=== PATIENT | female | born 1945 | race Two or more races ===

== ENCOUNTER 2019-05-02 19:13 | Emergency (ER) | payer SELFPAY ==
[2019-05-02] MEDS ORDERED: Sodium Chloride 0.9% 10 ML Syringe FLUSH PRN (19:53)
[2019-05-02] MEDS ORDERED: Sodium Chloride 0.9% 2.5 ML Syringe FLUSH PRN (19:53)
--- NOTE | 2019-05-02 19:55 | EDM.PDOC ---
ED HPI GENERAL MEDICAL PROBLEM - General Chief Complaint: Diabetic Complaint Stated Complaint: BLOOD SUGAR 300+ Time Seen by Provider: 05/02/19 19:53 Source of Information: Reports: Patient History Limitations: Reports: No Limitations - History of Present Illness INITIAL COMMENTS - FREE TEXT/NARRATIVE: HISTORY AND PHYSICAL: History of present illness: Patient is a 73-year-old female presents to the ED with complaint of elevated blood sure. Patient's daughter states she just moved here from [place] recently. Patient had been living with another family member and not taking her metformin or taking her blood sugars regularly. Patient had a blood sugar this afternoon and states it was over 300. She states she has been sick recently with a cough and generally not feeling well. Denies chest pain, shortness of breath, abdominal pain, nausea, vomiting, diarrhea. Review of systems: As per history of present illness and below otherwise all systems reviewed and negative. Past medical history: As per history of present illness and as reviewed below otherwise noncontributory. Surgical history: As per history of present illness and as reviewed below otherwise noncontributory. Social history: No reported history of drug or alcohol abuse. Family history: As per history of present illness and as reviewed below otherwise noncontributory. Physical exam: General: Patient sitting comfortably in no acute distress and nontoxic appearing HEENT: Atraumatic, normocephalic, pupils reactive, negative for conjunctival pallor or scleral icterus, mucous membranes moist, throat clear, neck supple, nontender, trachea midline. No meningeal signs. Lungs: Clear to auscultation, breath sounds equal bilaterally, chest nontender. Heart: S1S2, regular, negative for clicks, rubs, or overt murmur. Abdomen: Soft, nondistended, nontender. Negative for masses or hepatosplenomegaly. Negative for costovertebral tenderness. No rigidity, rebound , guarding. Pelvis: Stable nontender. Genitourinary: Deferred. Rectal: Deferred. Extremities: Atraumatic, negative for cords or calf pain. Neurovascular unremarkable. Neuro: Awake, alert, oriented. Cranial nerves II through XII unremarkable. Cerebellum unremarkable. Motor and sensory unremarkable throughout. Exam nonfocal. Notes: Diagnostics: CBC, CMP, UA, Chest x-ray Therapeutics: 1L NS IV Prescriptions: Impression: elevated blood sugar Definitive disposition and diagnosis as appropriate pending reevaluation and review of above. ED ROS GENERAL - Review of Systems Review Of Systems: Comprehensive ROS is negative, except as noted in HPI. ED EXAM GENERAL NO PERIP PULSE - Physical Exam Exam: See Below (see dictation) Course - Vital Signs Last Recorded V/S: Last Vital Signs Temp 97.4 F 05/02/19 19:31 Pulse 66 05/02/19 20:29 Resp 20 05/02/19 20:29 BP 128/75 05/02/19 20:29 Pulse Ox 95 05/02/19 20:29 - Orders/Labs/Meds Orders: Active Orders 24 hr Category Date Time Status Sodium Chloride 0.9% [Saline Flush] Med 05/02/19 19:53 Active 10 ml FLUSH ASDIRECTED PRN Sodium Chloride 0.9% [Saline Flush] Med 05/02/19 19:53 Active 2.5 ml FLUSH ASDIRECTED PRN Saline Lock Insert [OM.PC] Stat Oth 05/02/19 19:53 Ordered Medication Orders Sodium Chloride (Saline Flush) 10 ml FLUSH ASDIRECTED PRN PRN Reason: Keep Vein Open Last Admin: 05/02/19 20:29 Dose: 10 ml Sodium Chloride (Saline Flush) 2.5 ml FLUSH ASDIRECTED PRN PRN Reason: Keep Vein Open Last Admin: 05/02/19 20:29 Dose: 2.5 ml Labs: Laboratory Tests 05/02/19 05/02/19 05/02/19 Range/Units 19:32 19:45 19:45 WBC 9.42 (4.0-11.0) K/uL RBC 4.36 (4.30-5.90) M/uL Hgb 12.6 (12.0-16.0) g/dL Hct 37.9 (36.0-46.0) % MCV 86.9 (80.0-98.0) fL MCH 28.9 (27.0-32.0) pg MCHC 33.2 (31.0-37.0) g/dL RDW Std Deviation 43.2 (28.0-62.0) fl RDW Coeff of Talon 14 (11.0-15.0) % Plt Count 317 (150-400) K/uL MPV 10.50 (7.40-12.00) fL Neut % (Auto) 78.9 (48.0-80.0) % Lymph % (Auto) 15.0 L (16.0-40.0) % [place] % (Auto) 4.8 (0.0-15.0) % Eos % (Auto) 1.0 (0.0-7.0) % Baso % (Auto) 0.3 (0.0-1.5) % Neut # (Auto) 7.4 H (1.4-5.7) K/uL Lymph # (Auto) 1.4 (0.6-2.4) K/uL [place] # (Auto) 0.5 (0.0-0.8) K/uL Eos # (Auto) 0.1 (0.0-0.7) K/uL Baso # (Auto) 0.0 (0.0-0.1) K/uL Nucleated RBC % 0.0 /100WBC Nucleated RBCs # 0 K/uL Sodium 139 (136-145) mmol/L Potassium 3.7 (3.5-5.1) mmol/L Chloride 100 (98-107) mmol/L Carbon Dioxide 27.2 (21.0-32.0) mmol/L BUN 41 H (7.0-18.0) mg/dL Creatinine 1.4 H (0.6-1.0) mg/dL Est Cr Clr Drug Dosing TNP Estimated GFR (MDRD) 36.7 ml/min Glucose 244 H (74-106) mg/dL POC Glucose 243 H (60-110) mg/dL Calcium 9.1 (8.5-10.1) mg/dL Total Bilirubin 0.1 L (0.2-1.0) mg/dL AST 16 (15-37) IU/L ALT 24 (14-63) IU/L Alkaline Phosphatase 77 (46-116) U/L Total Protein 7.7 (6.4-8.2) g/dL Albumin 3.5 (3.4-5.0) g/dL Globulin 4.2 H (2.6-4.0) g/dL Albumin/Globulin Ratio 0.8 L (0.9-1.6) Urine Color Urine Appearance Urine pH (5.0-8.0) Ur Specific [place] (1.001-1.035) Urine Protein (NEGATIVE) mg/dL Urine Glucose (UA) (NEGATIVE) mg/dL Urine Ketones (NEGATIVE) mg/dL Urine Occult Blood (NEGATIVE) Urine Nitrite (NEGATIVE) Urine Bilirubin (NEGATIVE) Urine Urobilinogen (<2.0) EU/dL Ur Leukocyte Esterase (NEGATIVE) Urine RBC (0-2/HPF) Urine WBC (0-5/HPF) Ur Epithelial Cells (NONE-FEW) Urine Bacteria (NEGATIVE) 05/02/19 Range/Units 20:00 WBC (4.0-11.0) K/uL RBC (4.30-5.90) M/uL Hgb (12.0-16.0) g/dL Hct (36.0-46.0) % MCV (80.0-98.0) fL MCH (27.0-32.0) pg MCHC (31.0-37.0) g/dL RDW Std Deviation (28.0-62.0) fl RDW Coeff of Talon (11.0-15.0) % Plt Count (150-400) K/uL MPV (7.40-12.00) fL Neut % (Auto) (48.0-80.0) % Lymph % (Auto) (16.0-40.0) % [place] % (Auto) (0.0-15.0) % Eos % (Auto) (0.0-7.0) % Baso % (Auto) (0.0-1.5) % Neut # (Auto) (1.4-5.7) K/uL Lymph # (Auto) (0.6-2.4) K/uL [place] # (Auto) (0.0-0.8) K/uL Eos # (Auto) (0.0-0.7) K/uL Baso # (Auto) (0.0-0.1) K/uL Nucleated RBC % /100WBC Nucleated RBCs # K/uL Sodium (136-145) mmol/L Potassium (3.5-5.1) mmol/L Chloride (98-107) mmol/L Carbon Dioxide (21.0-32.0) mmol/L BUN (7.0-18.0) mg/dL Creatinine (0.6-1.0) mg/dL Est Cr Clr Drug Dosing Estimated GFR (MDRD) ml/min Glucose (74-106) mg/dL POC Glucose (60-110) mg/dL Calcium (8.5-10.1) mg/dL Total Bilirubin (0.2-1.0) mg/dL AST (15-37) IU/L ALT (14-63) IU/L Alkaline Phosphatase (46-116) U/L Total Protein (6.4-8.2) g/dL Albumin (3.4-5.0) g/dL Globulin (2.6-4.0) g/dL Albumin/Globulin Ratio (0.9-1.6) Urine Color YELLOW Urine Appearance SLT CLOUDY Urine pH 5.0 (5.0-8.0) Ur Specific [place] 1.025 (1.001-1.035) Urine Protein TRACE H (NEGATIVE) mg/dL Urine Glucose (UA) NEGATIVE (NEGATIVE) mg/dL Urine Ketones NEGATIVE (NEGATIVE) mg/dL Urine Occult Blood NEGATIVE (NEGATIVE) Urine Nitrite NEGATIVE (NEGATIVE) Urine Bilirubin NEGATIVE (NEGATIVE) Urine Urobilinogen 0.2 (<2.0) EU/dL Ur Leukocyte Esterase NEGATIVE (NEGATIVE) Urine RBC 0-1 (0-2/HPF) Urine WBC 0-1 (0-5/HPF) Ur Epithelial Cells FEW (NONE-FEW) Urine Bacteria RARE (NEGATIVE) Meds: Medications Generic Name Dose Route Start Last Admin Trade Name Freq PRN Reason Stop Dose Admin Sodium Chloride 10 ml 05/02/19 19:53 05/02/19 20:29 Saline Flush FLUSH 10 ml ASDIRECTED PRN Administration Keep Vein Open Sodium Chloride 2.5 ml 05/02/19 19:53 05/02/19 20:29 Saline Flush FLUSH 2.5 ml ASDIRECTED PRN Administration Keep Vein Open Departure - Departure Time of Disposition: 20:33 Disposition: Home, Self-Care 01 Condition: Good Clinical Impression: Elevated blood sugar - Discharge Information Referrals: PCP,None [Primary Care Provider] - Forms: ED Department Discharge Additional Instructions: The following information is given to patients seen in the emergency department who are being discharged to home. This information is to outline your options for follow-up care. We provide all patients seen in our emergency department with a follow-up referral. The need for follow-up, as well as the timing and circumstances, are variable depending upon the specifics of your emergency department visit. If you don't have a primary care physician on staff, we will provide you with a referral. We always advise you to contact your personal physician following an emergency department visit to inform them of the circumstance of the visit and for follow-up with them and/or the need for any referrals to a consulting specialist. The emergency department will also refer you to a specialist when appropriate. This referral assures that you have the opportunity for follow-up care with a specialist. All of these measure are taken in an effort to provide you with optimal care, which includes your follow-up. Under all circumstances we always encourage you to contact your private physician who remains a resource for coordinating your care. When calling for follow-up care, please make the office aware that this follow-up is from your recent emergency room visit. If for any reason you are refused follow-up, please contact the [facility] Emergency Department at and asked to speak to the emergency department charge nurse. [facility] [address] [place] [id number] [address] Follow up with primary care provider Return to ED As needed as discussed Sepsis Event Note - Evaluation Sepsis Screening Result: No Definite Risk - Focused Exam Vital Signs: Vital Signs Temp Pulse Resp BP Pulse Ox 05/02/19 20:29 66 20 128/75 95 05/02/19 19:31 97.4 F 76 20 97/61 97 Date Exam was Performed: 05/02/19 Time Exam was Performed: 20:33 - My Orders Last 24 Hours: My Active Orders 05/02/19 19:53 Sodium Chloride 0.9% [Saline Flush] 10 ml FLUSH ASDIRECTED PRN Sodium Chloride 0.9% [Saline Flush] 2.5 ml FLUSH ASDIRECTED PRN Saline Lock Insert [OM.PC] Stat - Assessment/Plan Last 24 Hours: My Active Orders 05/02/19 19:53 Sodium Chloride 0.9% [Saline Flush] 10 ml FLUSH ASDIRECTED PRN Sodium Chloride 0.9% [Saline Flush] 2.5 ml FLUSH ASDIRECTED PRN Saline Lock Insert [OM.PC] Stat
[2019-05-02 20:11] LABS: BLOOD UREA NITROGEN,BUN 41 mg/dL (7.0-18.0); CARBON DIOXIDE,CO2 27.2 mmol/L (21.0-32.0); CHLORIDE,CL 100 mmol/L (98-107); GLUCOSE RANDOM 244 mg/dL (74-106); POTASSIUM,K 3.7 mmol/L (3.5-5.1); SODIUM,NA 139 mmol/L (136-145)
--- NOTE | 2019-05-02 20:32 | CR ---
INDICATIONS: Chest pain. TECHNIQUE: Chest 1 AP upright frontal view. COMPARISON: None FINDINGS: No pneumothorax, pleural effusion or focal airspace consolidation. No pulmonary edema. Enlargement of the cardiac silhouette may be related to technique and/or cardiac enlargement. Upper abdomen and osseous structures as imaged show no acute abnormality. IMPRESSION: 1. No acute airspace disease. 2. Enlargement of the cardiac silhouette. No pulmonary edema. Dictated by Fransisco Dumont MD @ May 02 2019 8:27PM Signed by Dr. Fransisco Dumont @ May 02 2019 8:29PM
== END 2019-05-02 21:03 | disposition home or self-care (01) ==
LOC: MW.ED 19:13
DX: R73.9 Hyperglycemia, unspecified (principal)
CPT/HCPCS: 36415; 71045; 71045-26; 80053; 81001; 82962; 85025; 87804; 93005; 99283-25

== ENCOUNTER 2019-12-27 21:49 | Emergency (ER) | payer SELFPAY ==
[2019-12-27] MEDS ORDERED: Famotidine 20 MG/2 ML SDV IVPUSH ONE (22:05)
[2019-12-27] MEDS ORDERED: Sodium Chloride 0.9% 10 ML Syringe FLUSH PRN (22:05)
[2019-12-27] MEDS ORDERED: Ondansetron 4 MG/2 ML SDV IVPUSH ONE (22:05)
[2019-12-27] MEDS ORDERED: Sodium Chloride 0.9% 1,000 ML IV ONE (22:05)
[2019-12-27] MEDS ORDERED: Aspirin 81 MG Tab.Chew PO ONE (22:05)
[2019-12-27] MEDS ORDERED: Sodium Chloride 0.9% 2.5 ML Syringe FLUSH PRN (22:05)
--- NOTE | 2019-12-27 22:10 | EDM.PDOC ---
ED HPI GENERAL MEDICAL PROBLEM - General Chief Complaint: Chest Pain Stated Complaint: CHEST PAIN Time Seen by Provider: 12/27/19 21:55 Source of Information: Reports: Patient, Family History Limitations: Reports: Language Barrier - History of Present Illness INITIAL COMMENTS - FREE TEXT/NARRATIVE: History of present illness: [Patient is 74-year-old female with poor Upper Sorbian who is here with her daughter who is helping interpret for her. Through her daughter the patient communicates to me that she developed chest pain earlier this evening. She had eaten dinner and went to bed and about an hour after going to bed and lying down she developed some substernal chest pain. She has not taken any medications to try and treat her symptoms. She states that she has had indigestion and reflux before, but this feels different. Daughter notes that she was somewhat diaphoretic when she was complaining of the pain at home as well. She tried to use the toilet and have a bowel movement to see if that would help but did not provide significant relief. She denies recent URI symptoms, no fever, no chills, no body aches. Denies any known cardiac problems or history. She does have a history of a stroke in the past. She has diabetes and hypertension. She takes medication for these chronic medical problems. States that she has been compliant on her meds. The pain is nonradiating. Feels like a tightness and a pressure in the middle of her chest. Has been constant since onset which was between 1 and 2 hours ago.] Review of systems: As per history of present illness and below otherwise all systems reviewed and negative. Past medical history: As per history of present illness and as reviewed below otherwise noncontributory. Surgical history: As per history of present illness and as reviewed below otherwise noncontributory. Social history: No reported history of drug or alcohol abuse. Family history: As per history of present illness and as reviewed below otherwise noncontributory. Physical exam: General: Awake, alert, no acute distress, A&O X3. HEENT: Atraumatic, normocephalic, pupils reactive, negative for conjunctival pallor or scleral icterus, mucous membranes moist, throat clear, neck supple, nontender, trachea midline. Lungs: Clear to auscultation, breath sounds equal bilaterally, chest nontender. Heart: RRR, normal S1S2, no JVD. Abdomen: Soft, nondistended, nontender. Negative for masses or hepatosplenomegaly. obese. Pelvis: Stable nontender. Genitourinary: Deferred. Rectal: Deferred. Extremities: Atraumatic, no edema, Neurovascular unremarkable. Neuro: Motor and sensory grossly intact throughout. Exam nonfocal. Diagnostics: [] Therapeutics: [] Impression: [] Plan: [] Definitive disposition and diagnosis as appropriate pending reevaluation and review of above. Middle Chest Pain Score (Numeric/FACES): 7 - Related Data Allergies Allergy/AdvReac Type Severity Reaction Status Date / Time Penicillins Allergy Unknown Other Verified 12/27/19 22:18 Home Meds: Home Meds metFORMIN HCl [Metformin HCl] 850 mg PO DAILY 05/02/19 [History] Past Medical History Cardiovascular History: Reports: Hypertension [employer] History: Reports: Neurological History: Reports: Concussion Other Neuro History: 2010 stroke Endocrine/Metabolic History: Reports: Diabetes, Type II Social & Family History - Family History Family Medical History: Noncontributory - Tobacco Use Smoking Status *Q: Never Smoker - Recreational Drug Use Recreational Drug Use: No ED ROS GENERAL - Review of Systems Review Of Systems: Comprehensive ROS is negative, except as noted in HPI. ED EXAM, GENERAL - Physical Exam Exam: See Below (see h and p) EKG INTERPRETATION EKG Date: 12/27/19 Time: 21:56 Rhythm: NSR Rate (Beats/Min): 102 [place]: Normal P-Wave: Present QRS: Normal ST-T: Normal QT: Normal (significant baseline artifact with wander, sinus tach) Course - Vital Signs Text/Narrative:: Patient has significant clot burden with a right-sided pulmonary embolism, with some clot evident on the left side as well. She received heparin bolus and drip here in the ED. She will be transferred to [place] for further work-up and evaluation there and possible consultation with vascular surgery. No indication for acute thrombolytic therapy at this time. Her O2 sats are in the low 90s on room air. Blood pressure stable. Nontoxic and in no active distress at the time of transport. She does have some evidence of right heart strain on the CT scan. Otherwise EKG is nonischemic, troponin is negative, patient and family are understanding of the plan, patient was informed of her diagnosis and the plan in Serbian that she could understand and agree and consent to the plan for transfer and admission at [place]. Last Recorded V/S: Last Vital Signs Temp 36.6 C 12/27/19 21:57 Pulse 89 12/28/19 00:13 Resp 21 H 12/28/19 00:13 BP 164/70 H 12/28/19 00:13 Pulse Ox 95 12/28/19 00:13 - Orders/Labs/Meds Orders: Active Orders 24 hr Category Date Time Status EKG Documentation Completion [RC] STAT Care 12/27/19 22:06 Active aPTT [PTT,PARTIAL THROMBOPLSTIN TIME] [COAG] Stat Lab 12/28/19 00:52 Ordered Heparin Sod,Pork In 0.45% Nacl [Heparin-1/2Ns 25,000 Med 12/28/19 01:00 Active Units/500] 25,000 unit in 500 ml IV TITRATE Nitroglycerin [Nitrostat] Med 12/27/19 22:05 Active 0.4 mg SL Q5M PRN Sodium Chloride 0.9% [Saline Flush] Med 12/27/19 22:05 Active 10 ml FLUSH ASDIRECTED PRN Sodium Chloride 0.9% [Saline Flush] Med 12/27/19 22:05 Active 2.5 ml FLUSH ASDIRECTED PRN Saline Lock Insert [OM.PC] Stat Oth 12/27/19 22:05 Ordered Medication Orders Heparin Sodium/Sodium Chloride (Heparin-1/2ns 25,000 Units/500) 25,000 unit in 500 mls @ 32.658 mls/hr IV TITRATE AWILDA; Protocol Nitroglycerin (Nitrostat) 0.4 mg SL Q5M PRN PRN Reason: Chest Pain Last Admin: 12/27/19 22:19 Dose: 0.4 mg Documented by: Admin: 12/27/19 22:14 Dose: 0.4 mg Documented by: CINDY Sodium Chloride (Saline Flush) 10 ml FLUSH ASDIRECTED PRN PRN Reason: Keep Vein Open Sodium Chloride (Saline Flush) 2.5 ml FLUSH ASDIRECTED PRN PRN Reason: Keep Vein Open Labs: Laboratory Tests 12/27/19 12/27/19 12/27/19 Range/Units 21:55 21:55 21:55 WBC 15.26 H (4.0-11.0) K/uL RBC 4.69 (4.30-5.90) M/uL Hgb 13.3 (12.0-16.0) g/dL Hct 41.0 (36.0-46.0) % MCV 87.4 (80.0-98.0) fL MCH 28.4 (27.0-32.0) pg MCHC 32.4 (31.0-37.0) g/dL RDW Std Deviation 41.3 (28.0-62.0) fl RDW Coeff of Talon 13 (11.0-15.0) % Plt Count 238 (150-400) K/uL MPV 11.30 (7.40-12.00) fL Neut % (Auto) 75.4 (48.0-80.0) % Lymph % (Auto) 17.6 (16.0-40.0) % [place] % (Auto) 6.3 (0.0-15.0) % Eos % (Auto) 0.5 (0.0-7.0) % Baso % (Auto) 0.2 (0.0-1.5) % Neut # (Auto) 11.5 H (1.4-5.7) K/uL Lymph # (Auto) 2.7 H (0.6-2.4) K/uL [place] # (Auto) 1.0 H (0.0-0.8) K/uL Eos # (Auto) 0.1 (0.0-0.7) K/uL Baso # (Auto) 0.0 (0.0-0.1) K/uL D-Dimer, Quantitative (0.0-0.50) mg/L FEU Sodium 135 L (136-145) mmol/L Potassium 3.5 (3.5-5.1) mmol/L Chloride 97 L (98-107) mmol/L Carbon Dioxide 29.9 (21.0-32.0) mmol/L BUN 29 H (7.0-18.0) mg/dL Creatinine 1.5 H (0.6-1.0) mg/dL Est Cr Clr Drug Dosing TNP Estimated GFR (MDRD) 33.8 ml/min Glucose 201 H (74-106) mg/dL POC Glucose (60-110) mg/dL Calcium 8.5 (8.5-10.1) mg/dL Total Bilirubin 0.3 (0.2-1.0) mg/dL AST 15 (15-37) IU/L ALT 15 (14-63) IU/L Alkaline Phosphatase 97 (46-116) U/L CK-MB (CK-2) 0.8 (0-3.6) ng/mL Troponin I < 0.050 (0.000-0.056) ng/mL B-Natriuretic Peptide 42 (<100) PG/ML Total Protein 7.8 (6.4-8.2) g/dL Albumin 3.3 L (3.4-5.0) g/dL Globulin 4.5 H (2.6-4.0) g/dL Albumin/Globulin Ratio 0.7 L (0.9-1.6) 12/27/19 12/27/19 Range/Units 21:55 22:01 WBC (4.0-11.0) K/uL RBC (4.30-5.90) M/uL Hgb (12.0-16.0) g/dL Hct (36.0-46.0) % MCV (80.0-98.0) fL MCH (27.0-32.0) pg MCHC (31.0-37.0) g/dL RDW Std Deviation (28.0-62.0) fl RDW Coeff of Talon (11.0-15.0) % Plt Count (150-400) K/uL MPV (7.40-12.00) fL Neut % (Auto) (48.0-80.0) % Lymph % (Auto) (16.0-40.0) % [place] % (Auto) (0.0-15.0) % Eos % (Auto) (0.0-7.0) % Baso % (Auto) (0.0-1.5) % Neut # (Auto) (1.4-5.7) K/uL Lymph # (Auto) (0.6-2.4) K/uL [place] # (Auto) (0.0-0.8) K/uL Eos # (Auto) (0.0-0.7) K/uL Baso # (Auto) (0.0-0.1) K/uL D-Dimer, Quantitative 3.01 H (0.0-0.50) mg/L FEU Sodium (136-145) mmol/L Potassium (3.5-5.1) mmol/L Chloride (98-107) mmol/L Carbon Dioxide (21.0-32.0) mmol/L BUN (7.0-18.0) mg/dL Creatinine (0.6-1.0) mg/dL Est Cr Clr Drug Dosing Estimated GFR (MDRD) ml/min Glucose (74-106) mg/dL POC Glucose 196 H (60-110) mg/dL Calcium (8.5-10.1) mg/dL Total Bilirubin (0.2-1.0) mg/dL AST (15-37) IU/L ALT (14-63) IU/L Alkaline Phosphatase (46-116) U/L CK-MB (CK-2) (0-3.6) ng/mL Troponin I (0.000-0.056) ng/mL B-Natriuretic Peptide (<100) PG/ML Total Protein (6.4-8.2) g/dL Albumin (3.4-5.0) g/dL Globulin (2.6-4.0) g/dL Albumin/Globulin Ratio (0.9-1.6) Meds: Medications Generic Name Dose Route Start Last Admin Trade Name Freq PRN Reason Stop Dose Admin Heparin Sodium/Sodium Chloride 25,000 unit in 500 mls @ 32.658 mls/hr 12/28/19 01:00 Heparin-1/2ns 25,000 Units/500 IV TITRATE AWILDA Protocol 18 UNITS/KG/HR Nitroglycerin 0.4 mg 12/27/19 22:05 12/27/19 22:19 Nitrostat SL 0.4 mg Q5M PRN Administration Chest Pain Sodium Chloride 10 ml 12/27/19 22:05 Saline Flush FLUSH ASDIRECTED PRN Keep Vein Open Sodium Chloride 2.5 ml 12/27/19 22:05 Saline Flush FLUSH ASDIRECTED PRN Keep Vein Open Discontinued Medications Generic Name Dose Route Start Last Admin Trade Name Freq PRN Reason Stop Dose Admin Acetaminophen 650 mg 12/28/19 00:45 Tylenol PO 12/28/19 00:46 NOW ONE Aspirin 324 mg 12/27/19 22:05 12/27/19 22:17 Aspirin PO 12/27/19 22:06 324 mg ONETIME ONE Administration Famotidine 20 mg 12/27/19 22:05 12/27/19 22:15 Pepcid IVPUSH 12/27/19 22:06 20 mg ONETIME ONE Administration Heparin Sodium (Porcine) 7,200 units 12/28/19 00:54 Heparin Sodium IVPUSH 12/28/19 00:55 ONETIME ONE Protocol Sodium Chloride 1,000 mls @ 999 mls/hr 12/27/19 22:05 12/27/19 22:13 Normal Saline IV 12/27/19 23:05 999 mls/hr .Bolus ONE Administration Iopamidol 50 ml 12/28/19 00:15 12/28/19 00:16 Isovue-300 (61%) IVPUSH 12/28/19 00:16 50 ml ONETIME STA Administration Ondansetron HCl 4 mg 12/27/19 22:05 12/27/19 22:20 Zofran IVPUSH 12/27/19 22:06 4 mg ONETIME ONE Administration Departure - Departure Time of Disposition: 01:05 Disposition: DC/Tfer to Acute Hospital 02 Reason for Transfer *Q: Other (Pulmonary embolism, right heart strain, possible vasc surgery consult) Condition: Fair Clinical Impression: Pulmonary embolism Instructions: Pulmonary Embolism Referrals: PCP,None [Primary Care Provider] - Forms: ED Department Discharge Critical Care Note - Critical Care Note Total Time (mins): 40 Comments: Patient with evidence of significant clot burden involving the right main pulmonary embolism. She required frequent reexaminations and monitoring for hemodynamic stability, hypoxia, and monitoring while placed on heparin bolus and drip here in the emergency department. Sepsis Event Note (ED) - Evaluation Sepsis Screening Result: No Definite Risk - Focused Exam Vital Signs: Vital Signs Temp Pulse Resp BP BP Pulse Ox 12/28/19 00:13 89 21 H 164/70 H 95 12/27/19 22:52 87 15 140/78 99 12/27/19 22:24 109 H 23 H 154/78 H 95 12/27/19 22:19 148/88 H 12/27/19 22:14 189/73 H 12/27/19 21:57 36.6 C 114 H 26 H 171/108 H 97 - My Orders Last 24 Hours: My Active Orders 12/27/19 22:05 Nitroglycerin [Nitrostat] 0.4 mg SL Q5M PRN Sodium Chloride 0.9% [Saline Flush] 10 ml FLUSH ASDIRECTED PRN Sodium Chloride 0.9% [Saline Flush] 2.5 ml FLUSH ASDIRECTED PRN Saline Lock Insert [OM.PC] Stat 12/27/19 22:06 EKG Documentation Completion [RC] STAT 12/28/19 00:52 aPTT [PTT,PARTIAL THROMBOPLSTIN TIME] [COAG] Stat 12/28/19 01:00 Heparin Sod,Pork In 0.45% Nacl [Heparin-1/2Ns 25,000 Units/500] 25,000 unit in 500 ml IV TITRATE - Assessment/Plan Last 24 Hours: My Active Orders 12/27/19 22:05 Nitroglycerin [Nitrostat] 0.4 mg SL Q5M PRN Sodium Chloride 0.9% [Saline Flush] 10 ml FLUSH ASDIRECTED PRN Sodium Chloride 0.9% [Saline Flush] 2.5 ml FLUSH ASDIRECTED PRN Saline Lock Insert [OM.PC] Stat 12/27/19 22:06 EKG Documentation Completion [RC] STAT 12/28/19 00:52 aPTT [PTT,PARTIAL THROMBOPLSTIN TIME] [COAG] Stat 12/28/19 01:00 Heparin Sod,Pork In 0.45% Nacl [Heparin-1/2Ns 25,000 Units/500] 25,000 unit in 500 ml IV TITRATE
[2019-12-27] MEDS: Nitroglycerin 0.4 MG Tab.SL SL PRN ×2 (22:14→22:19)
[2019-12-27 22:37] LABS: BLOOD UREA NITROGEN,BUN 29 mg/dL (7.0-18.0); CARBON DIOXIDE,CO2 29.9 mmol/L (21.0-32.0); CHLORIDE,CL 97 mmol/L (98-107); GLUCOSE RANDOM 201 mg/dL (74-106); POTASSIUM,K 3.5 mmol/L (3.5-5.1); SODIUM,NA 135 mmol/L (136-145)
--- NOTE | 2019-12-27 23:11 | CR ---
HISTORY: Chest pain COMPARISON: 05/02/2019 FINDINGS: A portable erect AP view of the chest was obtained at 22 28 hours. There is new mild patchy density in the left lung base, probably atelectasis. The rest of the chest remains clear despite shallow inspiration. The heart has slightly decreased in size but remains mildly enlarged. There is stable mild tortuosity of the descending thoracic aorta. The mediastinum is otherwise normal in appearance. The osseous structures are normal in appearance for the patient`s age. IMPRESSION: New mild patchy left basilar infiltrate, probably atelectasis. Decrease in mild cardiomegaly. Dictated by Lauri Medrano MD @ Dec 27 2019 11:08PM Signed by Dr. Lauri Medrano @ Dec 27 2019 11:10PM
[2019-12-28] MEDS ORDERED: Iopamidol 612 MG/ML 50 ML SDV IVPUSH STA (00:15)
[2019-12-28] MEDS ORDERED: Acetaminophen 325 MG Tab PO ONE (00:45)
--- NOTE | 2019-12-28 00:51 | CT ---
INDICATION: Chest pain and shortness of breath. Rule out pulmonary embolism. COMPARISON: None available TECHNIQUE: CT examination of the chest was performed with the uneventful intravenous administration of 50 cc of Isovue-300 while 1 mm thick axial sections were obtained through the pulmonary arteries. Please note that all CT scans at this facility use dose modulation, iterative reconstruction, and/or weight-based dosing when appropriate to reduce radiation dose to as low as reasonably achievable. FINDINGS: : There is a large pulmonary embolus in the right main pulmonary artery, extending into the right lower lobe pulmonary artery and into the lateral and posterior basilar segmental arteries. There is also extension of thrombus into the right middle lobe and the medial and lateral segmental arteries. A small amount of thrombus is seen extending into the anterior segment of the right upper lobe. There is only minimal pulmonary embolism on the left, with a thrombus seen in the medial basilar segmental artery of the left lower lobe. Clot burden is high. There is evidence of right ventricular strain with an elevated RV/LV ratio of 1.25 and flattening of the interventricular septum. The heart is also mildly enlarged. There is mild patchy and linear density in both lower lobes, right greater than left. This is probably simply atelectasis on the left. There is more uniform consolidation along the anterior aspect of the right middle lobe, probably in the superior segment. This may be an area of pulmonary infarction. Additional patchy density is seen in the anterior-inferior aspect of the right middle lobe at the lung base. This is probably atelectasis, with relatively little pulmonary emboli involving this portion of the lung. There is also patchy density in the dependent portions of both upper lobes, also probably atelectasis. There is no sign of mediastinal or hilar mass or adenopathy. The heart is normal in appearance for the patient`s age, as are the aorta and other ascending great vessels. There is no sign of supraclavicular or axillary mass or adenopathy. The visualized superior liver, spleen, pancreas, left kidney, and adrenals are normal in appearance. There is a mild T11 compression fracture with mild superior endplate fracture, of indeterminate age. I discussed the findings with Dr. Corral at 0045 hours on 12/28/2019 IMPRESSION: Prominent pulmonary embolism, primarily involving the right lung, most pronounced in the right lower lobe. Findings suggesting right ventricular strain. Patchy right greater than left lower and upper lung infiltrates, most likely atelectasis. More uniform consolidation in the anterior-lateral aspect of the superior segments of the right lower lobe could be pulmonary infarction. Mild cardiomegaly. Please note that all CT scans at this facility use dose modulation, iterative reconstruction, and/or weight-based dosing when appropriate to reduce radiation dose to as low as reasonably achievable. Dictated by Lauri Medrano MD @ Dec 28 2019 12:39AM Signed by Dr. Lauri Medrano @ Dec 28 2019 12:50AM
[2019-12-28] MEDS ORDERED: Heparin Sodium 5,000 Units/ML Vial IVPUSH ONE (00:54)
[2019-12-28] MEDS ORDERED: Heparin Sod,Pork In 0.45% Nacl 25,000 UNIT/500 ML IV.SOLN IV SCH (01:00)
[2019-12-28] MEDS ORDERED: Heparin Sod,Pork In 0.45% Nacl 25,000 UNIT/500 ML IV.SOLN IV ONE (01:18)
== END 2019-12-28 02:10 ==
LOC: MW.ED 21:49
DX: I26.99 Other pulmonary embolism without acute cor pulmonale (principal); I10 Essential (primary) hypertension; E11.9 Type 2 diabetes mellitus without complications; Z88.0 Allergy status to penicillin; Z79.84 Long term (current) use of oral hypoglycemic drugs
CPT/HCPCS: 36415; 71045; 71275; 80053; 82553; 82962; 83880; 84484; 85025; 85379; 85730; 93005; 96361; 96365; 96375; 99285; A9270; J1644; J2405; J3490; J7030; Q9967; 99284